=== PATIENT | male | born 1985 | race African-American/Black ===

== ENCOUNTER 2018-03-17 17:03 | Emergency (ER) | payer SELFPAY | END 2018-03-17 18:45 | disposition home or self-care (01) | LOC: ERS 17:03 | DX: R29.898 Other symptoms and signs involving the musculoskeletal system (principal); F17.210 Nicotine dependence, cigarettes, uncomplicated | CPT/HCPCS: 99281 ==

== ENCOUNTER 2018-07-13 20:02 | Emergency (ER) | payer SELFPAY ==
--- NOTE | 2018-07-13 21:06 | RAD ---
PORTABLE UPRIGHT CHEST 07/13/18 PROVIDED CLINICAL HISTORY: Chest pain. FINDINGS: No comparisons. The cardiac silhouette is mildly prominent, likely at least partially on the basis of portable technique. There is no focal consolidation, pleural fluid or pneumothorax apparent. IMPRESSION: No evidence for an acute cardiopulmonary process. POS: [facility]
== END 2018-07-13 20:55 | disposition home or self-care (01) ==
LOC: ERS 20:02
DX: R20.2 Paresthesia of skin (principal); F41.9 Anxiety disorder, unspecified; F17.210 Nicotine dependence, cigarettes, uncomplicated
CPT/HCPCS: 71045; 93005

== ENCOUNTER 2018-07-30 23:46 | Emergency (ER) | payer SELFPAY | END 2018-07-31 00:56 | disposition home or self-care (01) | LOC: ERS 23:46 | DX: J06.9 Acute upper respiratory infection, unspecified (principal); F17.210 Nicotine dependence, cigarettes, uncomplicated | CPT/HCPCS: 99283 ==

== ENCOUNTER 2018-09-20 18:18 | Emergency (ER) | payer SELFPAY | END 2018-09-20 19:35 | disposition home or self-care (01) | LOC: ERS 18:18 | DX: Z02.79 Encounter for issue of other medical certificate (principal); Z71.6 Tobacco abuse counseling; F17.210 Nicotine dependence, cigarettes, uncomplicated; J45.909 Unspecified asthma, uncomplicated | CPT/HCPCS: 99406 ==

== ENCOUNTER 2018-12-28 19:54 | Emergency (ER) | payer SELFPAY ==
--- NOTE | 2018-12-28 20:30 | RAD ---
TWO VIEWS OF THE CHEST: 12/28/18 COMPARISON: None. HISTORY: Cough. FINDINGS: Two views of the chest show normal sized cardiomediastinal silhouette. There is no evidence of consol idation, mass, or pleural effusion. The bones are unremarkable. IMPRESSION: No evidence of acute cardiopulmonary disease. POS: C
== END 2018-12-28 20:43 | disposition home or self-care (01) ==
LOC: ERS 19:54
DX: J06.9 Acute upper respiratory infection, unspecified (principal); F17.210 Nicotine dependence, cigarettes, uncomplicated
CPT/HCPCS: 71046; 99281